=== PATIENT | female | born 2000 | race American Indian/Alaskan Native ===

== ENCOUNTER 2018-06-17 12:56 | Emergency (ER) | payer OTHER ==
--- NOTE | 2018-06-17 13:05 | Emergency Department Report ---
Blank Doc - Documentation Documentation: This is a 17-year-old female that presents with vaginal irritation. Denies any vaginal discharge or urinary symptoms. This initial assessment/diagnostic orders/clinical plan/treatment(s) is/are subject to change based on patient's health status, clinical progression and re-assessment by fellow clinical providers in the ED. Further treatment and workup at subsequent clinical providers discretion. Patient/guardians urged not to elope from the ED as their condition may be serious if not clinically assessed and managed. Initial orders include: 1- Patient sent to [facility] for further evaluation and treatment 2- UA 3- wet prep
[2018-06-17 13:08] VITALS: BP 102/48
[2018-06-17 13:50] LABS: Bacteria,Urine 1+ /HPF (Negative); Bilirubin,Urine NEG (Negative); Blood,Urine SM (Negative); Color,Urine Yellow (Yellow); HCG Qualitative,Urine Negative (Negative); Mucus,Urine 2+ /HPF; Urobilinogen,Urine < 2.0 mg/dL (<2.0)
--- NOTE | 2018-06-17 14:16 | Emergency Department Report ---
ED Female HPI - General Chief complaint: Urogenital-Female Stated complaint: VAGINAL DISCOMFORT Time Seen by Provider: 06/17/18 14:04 Source: patient Mode of arrival: Ambulatory Limitations: No Limitations - History of Present Illness Initial comments: Patient is a 17-year-old female that presented similar to him with complaints of bumps on her vagina. Patient states the bumps started 2 weeks ago. Patient states she wants to have them checked out. Patient denies vaginal discharge. Patient denies dysuria. Patient denies abdominal pain. Patient denies vaginal pain. Patient denies pelvic pain. Patient denies fever and chills. -: Sudden Location: labia Consistency: constant Improves with: none Worsens with: none Are you Now?: No Associated Symptoms: denies: vaginal discharge, vaginal bleeding, abdominal pain, nausea/vomiting, fever/chills, headaches, loss of appetite, dysuria, hematuria, rash, seizure, shortness of breath, syncope, weakness - Related Data Sexually active: Yes Allergies Allergy/AdvReac Type Severity Reaction Status Date / Time No Known Allergies Allergy Unverified 06/17/18 12:57 ED Review of Systems ROS: Stated complaint: VAGINAL DISCOMFORT Other details as noted in HPI Constitutional: denies: chills, fever Eyes: denies: eye pain, eye discharge, vision change ENT: denies: ear pain, throat pain Respiratory: denies: cough, shortness of breath, wheezing Cardiovascular: denies: chest pain, palpitations Endocrine: no symptoms reported Gastrointestinal: denies: abdominal pain, nausea, diarrhea Genitourinary: denies: urgency, dysuria, discharge Musculoskeletal: denies: back pain, joint swelling, arthralgia Skin: denies: rash, lesions Neurological: denies: headache, weakness, paresthesias Psychiatric: denies: anxiety, depression Hematological/Lymphatic: denies: easy bleeding, easy bruising ED Past Medical Hx - Past Medical History Previous Medical History?: No - Surgical History Past Surgical History?: Yes Additional Surgical History: 05/2018 - Family History Family history: no significant - Social History Smoking Status: Never Smoker Substance Use Type: None ED Physical Exam - General Limitations: No Limitations General appearance: alert, in no apparent distress - Head Head exam: Present: atraumatic, normocephalic - Eye Eye exam: Present: normal appearance - ENT ENT exam: Present: mucous membranes moist - Neck Neck exam: Present: normal inspection - Respiratory Respiratory exam: Present: normal lung sounds bilaterally. Absent: respiratory distress - Cardiovascular Cardiovascular Exam: Present: regular rate, normal rhythm. Absent: systolic murmur, diastolic murmur, rubs, gallop - GI/Abdominal GI/Abdominal exam: Present: soft, normal bowel sounds - External exam: Present: other (external exam done with Zora the nurse in the room. External exam reveals warts on the labia.) - Extremities Exam Extremities exam: Present: normal inspection - Back Exam Back exam: Present: normal inspection - Neurological Exam Neurological exam: Present: alert, oriented X3 - Psychiatric Psychiatric exam: Present: normal affect, normal mood - Skin Skin exam: Present: warm, dry, intact, normal color. Absent: rash ED Course Vital Signs 06/17/18 13:05 Temperature 99.2 F Pulse Rate 60 Respiratory 18 Rate Blood Pressure 102/48 O2 Sat by Pulse 100 Oximetry - Reevaluation(s) Reevaluation #1: Initial evaluation done. Patient also had a genital exam done with nurse in the room. Patient's genital exam reveals cauliflower-like lesions on the labia. Findings consistent with genital warts. Patient will be discharged to follow-up with [facility]. 06/17/18 14:39 ED Medical Decision Making - Medical Decision Making Patient is a 17-year-old female Emergency room with bumps on her vagina. Exam reveals genital warts. Patient was discharged home. Patient given discharge instructions. Patient given follow-up instruction. Patient voiced understanding of all structures. - Differential Diagnosis vaginal bumps. Genital warts. STD Critical care attestation.: If time is entered above; I have spent that time in minutes in the direct care of this critically ill patient, excluding procedure time. ED Disposition Clinical Impression: Genital warts Disposition: - TO HOME OR SELFCARE Is pt being admited?: No Does the pt Need Aspirin: No Condition: Stable Instructions: Genital Warts (ED) Additional Instructions: Patient follow-up with [facility] in 2-3 days. Patient to follow up with primary care in 2-3 days. Patient to return to your condition worsens. Patient to rest. Patient to avoid sex until seen by [facility]. Referrals: SOM TALBOT MD [Staff Physician] - 2-3 Days CARBUCCIA,FRANKIE, MD [Primary Care Provider] - 2-3 Days Time of Disposition: 15:01
== END 2018-06-17 15:10 | disposition home or self-care (01) ==
LOC: ED 12:56
DX: A63.0 Anogenital (venereal) warts (principal)
CPT/HCPCS: 81001; 81025; 99283

== ENCOUNTER 2018-07-18 13:40 | Emergency (ER) | payer SELFPAY ==
--- NOTE | 2018-07-18 13:45 | Emergency Department Report ---
Blank Doc - Documentation Documentation: This is a 17-year-old female that presents with tampon in the vagina area. This initial assessment/diagnostic orders/clinical plan/treatment(s) is/are subject to change based on patient's health status, clinical progression and re- assessment by fellow clinical providers in the ED. Further treatment and workup at subsequent clinical providers discretion. Patient/guardians urged not to elope from the ED as their condition may be serious if not clinically assessed and managed. Initial orders include: 1- Patient sent to [facility] for further evaluation and treatment
[2018-07-18 13:47] VITALS: BP 128/72
--- NOTE | 2018-07-18 14:54 | Emergency Department Report ---
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 - Related Data Allergies Allergy/AdvReac Type Severity Reaction Status Date / Time No Known Allergies Allergy Verified 07/18/18 13:41 ED Review of Systems ROS: Stated complaint: STUCK TAMPON Other details as noted in HPI Comment: All other systems reviewed and negative ED Past Medical Hx - Past Medical History Previous Medical History?: No - Surgical History Additional Surgical History: 05/2018 - Social History Smoking Status: Never Smoker Substance Use Type: Marijuana ED Physical Exam - General Limitations: No Limitations General appearance: alert - Head Head exam: Present: atraumatic - Eye Eye exam: Present: PERRL - ENT ENT exam: Present: mucous membranes moist - Neck Neck exam: Present: normal inspection - GI/Abdominal GI/Abdominal exam: Present: soft, normal bowel sounds. Absent: tenderness - Speculum exam: Present: foreign body ED Course Vital Signs 07/18/18 13:44 Temperature 98.0 F Pulse Rate 104 H Respiratory 16 Rate Blood Pressure 128/72 O2 Sat by Pulse 98 Oximetry ED Recheck MDM - Core Measures Measure Exclusions: not indicated - Medical Decision Making tampon removed from vagina with forcepts dc home Vital Signs 07/18/18 13:44 Temperature 98.0 F Pulse Rate 104 H Respiratory 16 Rate Blood Pressure 128/72 O2 Sat by Pulse 98 Oximetry Critical care attestation.: If time is entered above; I have spent that time in minutes in the direct care of this critically ill patient, excluding procedure time. ED Disposition Clinical Impression: Retained tampon Disposition: DC-01 TO HOME OR SELFCARE Is pt being admited?: No Does the pt Need Aspirin: No Condition: Stable Referrals: [facility] [Outside] - 3-5 Days Time of Disposition: 14:51
== END 2018-07-18 15:24 | disposition home or self-care (01) ==
LOC: ED 13:40
DX: M79.5 Residual foreign body in soft tissue (principal)
CPT/HCPCS: 99282